=== PATIENT | male | born 1975 | race African-American/Black ===

== ENCOUNTER 2021-04-08 09:11 | Emergency (ER) | payer MEDICAID ==
[~2021-04-08] VITALS: Ht 182.9 cm; Wt 71.7 kg
[2021-04-08 09:15] VITALS: BP 133/101
--- NOTE | 2021-04-08 09:17 | NUR ---
TO ER BED 12, BIB , C/O LT ARM AND RT FOOD PAIN AND SWELLING S/P FALLING FROM 4FT HIGH LADDER, -LOC, AAOX4, BREATHING EVEN AND NON LABORED
[2021-04-08] MEDS ORDERED: IBUPROFEN 600 MG TABLET ONE (09:25)
[2021-04-08] MEDS ORDERED: IBUPROFEN 600 MG TABLET PO ONE (09:30)
[2021-04-08] MEDS ORDERED: IBUP-1955 PO (10:35)
--- NOTE | 2021-04-08 10:45 | NUR ---
Patient discharged to home in stable condition. Written and verbal after care instructions given. Patient verbalizes understanding of instruction.
== END 2021-04-08 11:24 | disposition home or self-care (01) ==
LOC: ER 09:11
DX: S52.572A Other intraarticular fracture of lower end of left radius, initial encounter for closed fracture (principal); S52.615A Nondisplaced fracture of left ulna styloid process, initial encounter for closed fracture; M79.671 Pain in right foot; W17.89XA Other fall from one level to another, initial encounter; Y93.89 Activity, other specified; Y92.89 Other specified places as the place of occurrence of the external cause; Y99.8 Other external cause status
CPT/HCPCS: 73090-TC; 73110; 73130-TC; 73630-TC

== ENCOUNTER 2024-09-26 11:30 | Emergency (ER) | payer MEDICAID ==
[~2024-09-26] VITALS: Ht 180.3 cm; Wt 74.8 kg
[~2024-09-26 11:30] MED LIST: IBUP-1955 PO
[2024-09-26] MEDS ORDERED: NAPR-1164 PO (12:43)
[2024-09-26 13:11] VITALS: BP 137/63; TEMP 98.3; O2SAT 99
== END 2024-09-26 13:11 | disposition home or self-care (01) ==
LOC: ER 11:38 → EDBD 11:38 → ER 13:11
DX: M25.552 Pain in left hip (principal); F17.200 Nicotine dependence, unspecified, uncomplicated; Z79.899 Other long term (current) drug therapy
CPT/HCPCS: 73502